=== PATIENT | male | born 1985 | race African-American/Black ===

== ENCOUNTER 2020-04-22 11:27 | Emergency (ER) | payer SELFPAY ==
[2020-04-22 11:55] VITALS: BP 114/68; PULSE 68; RESP 16; TEMP 36.5; O2SAT 99
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
[2020-04-22] MEDS: cefTRIAXone 250 MG VIAL IM (12:41)
[2020-04-22] MEDS: AZITHROMYCIN 250 MG TABLET 1000 MG PO (12:50)
== END 2020-04-22 13:12 | disposition home or self-care (01) ==
PROVIDERS: Emergency Provider Nurse Practitioner
DX: Z20.2 Contact with and (suspected) exposure to infections with a predominantly sexual mode of transmission (principal); F17.210 Nicotine dependence, cigarettes, uncomplicated
CPT/HCPCS: 81003; 87491; 87591; 87661; 96372; 99203; A9270; G0463; J0696